=== PATIENT | female | born 1965 ===

== ENCOUNTER 2018-06-28 10:54 | Outpatient (CLI) | payer OTHER | END 2018-06-28 17:00 | disposition home or self-care (01) | LOC: RX STUDY 10:54 | DX: R11.2 Nausea with vomiting, unspecified (principal); R10.13 Epigastric pain ==

== ENCOUNTER → 2025-02-06 | Day surgery (SDC) | payer OTHER ==
[~2025-02-06] MED LIST: DIPHENHYDRAMINE HCL 50 MG/ML VIAL 1ML IV ONE; MIDAZOLAM HCL 2 MG/2 ML VIAL IV ONE; fentaNYL CITRATE 50 MCG/ML AMPUL IV PUSH ONE
== END | disposition home or self-care (01) ==
LOC: ADM 01-30 13:15 → AMB-ENDOS 07:00
PROVIDERS: ATTEND Internal Medicine
DX: K63.5 Polyp of colon (principal); K62.5 Hemorrhage of anus and rectum; R19.4 Change in bowel habit